=== PATIENT | female | born 1985 | race Caucasian/White ===

== ENCOUNTER 2021-09-28 16:24 | Emergency (ER) | payer OTHER ==
[2021-09-28 18:20] LABS: HEMOGLOBIN 14.3 gm/dl (12.3-15.3); RED BLOOD COUNT 4.58 M/UL (4.00-5.10)
[2021-09-28 18:40] LABS: BUN/CREATININE RATIO 13 (0-10)
[2021-09-28] MEDS ORDERED: CEFUROXIME500 MG PO (18:55)
== END 2021-09-28 19:08 | disposition home or self-care (01) ==
LOC: ER1 16:24
PROVIDERS: Preventive Medicine Occupational Medicine
DX: N39.0 Urinary tract infection, site not specified (principal); E11.9 Type 2 diabetes mellitus without complications; F17.210 Nicotine dependence, cigarettes, uncomplicated
CPT/HCPCS: 70450; 80053; 80307; 81001; 85025; 85652; 86140; 87086; 99284